=== PATIENT | female | born 1965 | race Caucasian/White ===

== ENCOUNTER 2023-12-09 08:35 | Emergency (ER) | payer MEDICAID ==
[~2023-12-09] VITALS: Ht 165.1 cm; Wt 136.1 kg
[2023-12-09 08:35] VITALS: BP_SYST 167; PULSE 74; RESP 18; TEMP 97.1; O2SAT 96
[2023-12-09 10:32] VITALS: BP_SYST 167; PULSE 74; RESP 18; TEMP 97.1; O2SAT 96
== END 2023-12-09 10:21 | disposition home or self-care (01) ==
LOC: SED 08:35
DX: S60.031A Contusion of right middle finger without damage to nail, initial encounter (principal); S60.041A Contusion of right ring finger without damage to nail, initial encounter; W18.39XA Other fall on same level, initial encounter; Y93.89 Activity, other specified; Y92.89 Other specified places as the place of occurrence of the external cause; Y99.8 Other external cause status
CPT/HCPCS: 73140; 99283